=== PATIENT | female | born 1970 | race Caucasian/White ===

== ENCOUNTER 2017-04-27 19:06 | Emergency (ER) | payer OTHER ==
[~2017-04-27] VITALS: Ht 162.6 cm; Wt 79.4 kg
[2017-04-27 20:12] LABS: Basophils # (auto) 0 uL; Basophils % (auto) 0.2 % (0.0-2.0); CONDITION Y; DEFINITIVE SEE PRINTOUT; Eosinophils # (auto) 0.3 uL; Eosinophils % (auto) 2.9 % (0.0-7.0); Hematocrit 28.5 % (36.0-46.0); Hemoglobin 8.4 g/dL (12.2-16.2); Lymphocytes # (auto) 1.9 uL; Lymphocytes % (auto) 16.2 % (10.0-50.0); Mean Corpuscular Hemoglobin 16.8 pg (28.0-32.0); Mean Corpuscular Hgb Conc. 29.6 g/dL (32.0-36.0); Mean Corpuscular Volume 56.7 fL (80.0-100.0); Mean Platelet Volume 8.4 fL (7.4-10.4); Monocytes # (auto) 0.7 uL; Monocytes % (auto) 6.4 % (0.0-12.0); Neutrophils # (auto) 8.6 uL; Neutrophils % (auto) 74.3 % (37.0-80.0); Platelet Count (auto) 426 10^3/uL (140-450); White Blood Cell 11.6 10^3/uL (4.4-10.8)
[2017-04-27] MEDS ORDERED: ASPirin 81 mg TAB PO ONE (20:15)
[2017-04-27 20:26] LABS: INR 0.97 (0.9-1.15); Partial Thromboplastin Time 24.2 sec (22.64-33.71); Prothrombin Time 10.6 sec (9.37-12.3)
[2017-04-27 20:28] LABS: Anion Gap 12 (5-15); BUN/Creatinine Ratio 19.4; Blood Urea Nitrogen 13 mg/dL (7-18); Calcium 9.4 mg/dL (8.5-10.1); Carbon Dioxide 21 mmol/L (21-32); Chloride 108 mmol/L (98-107); GFR African American 121 mL/min; GFR Non-African American 100 mL/min; Glucose 105 mg/dL (74-106); Magnesium 2.3 mg/dL (1.6-2.6); Sodium 141 mmol/L (136-145)
[2017-04-27] MEDS ORDERED: PANTOPRAZOLE SODIUM 40 MG/10 ML VIAL IV ONE (20:30)
[2017-04-27 20:35] LABS: Alkaline Phosphatase 177 U/L (45-117); Aspartate Aminotransferase 100 U/L (15-37); Bilirubin, Total 0.7 mg/dL (0.2-1.0); Total Protein 8.3 g/dL (6.4-8.2)
[2017-04-27 20:39] LABS: Amylase 42 U/L (25-115)
[2017-04-27 21:04] LABS: Red Cell Distribution Width 21.6 % (11.6-16.0)
[2017-04-27 21:08] LABS: Platelet Estimate Adequate
[2017-04-27 21:09] LABS: Hypochromia Marked; Microcytosis Marked; Ovalocytes FEW
[2017-04-27 21:10] LABS: Anisocytosis Moderate; Polychromasia Slight; Stomatocytes Few; Tear Drop Cells FEW
[2017-04-27 22:29] LABS: Urine Bilirubin Negative (Negative); Urine Blood Negative /uL (Negative); Urine Color Yellow (Yellow); Urine Glucose Normal (Normal); Urine Ketone Negative (Negative); Urine Mucus FEW (None Seen); Urine Nitrite Negative (Negative); Urine RBC <1 /hpf (0 - 4); Urine Squamous Epithelial Cell FEW /hpf (<5); Urine pH 5.5 (5.0-8.0)
[2017-04-28 00:06] VITALS: BP 129/76
== END 2017-04-28 00:55 | disposition short-term general hospital (02) ==
LOC: ER 19:22
DX: R10.9 Unspecified abdominal pain (principal); K80.00 Calculus of gallbladder with acute cholecystitis without obstruction; F17.210 Nicotine dependence, cigarettes, uncomplicated; Z98.51 Tubal ligation status
CPT/HCPCS: 36415; 71020; 76705; 80053; 81001; 82150; 83690; 83735; 84443; 84484; 85025; 85610; 85730; 93005; 94761; 96374; 99285; C9113